=== PATIENT | male | born 1945 | race Caucasian/White ===

== ENCOUNTER 2023-01-12 17:12 | Observation (INO) ==
[2023-01-12 17:56] LABS: White Blood Count 8.6 10^3/uL (3.5-10.8)
[2023-01-12 17:57] LABS: ABS Eosinophils 0.2 10^3/ul (0-0.6); ABS Lymphocytes 2.5 10^3/ul (1.0-4.8); ABS Monocytes 0.9 10^3/ul (0-0.8); Eosinophil % 2.7 %; Hematocrit 35 % (42-52); Hemoglobin 11.9 g/dL (14.0-18.0); Lymphocyte % 28.8 %; Mean Corpuscular HGB Conc 34 g/dL (31-36); Mean Corpuscular Hemoglobin 31 pg (27-31); Mean Corpuscular Volume 92 fL (80-94); Mean Platelet Volume 6.9 fL (7.4-10.4); Platelet Count 288 10^3/uL (150-450); Red Blood Count 3.86 10^6 /uL (4.18-5.48); Red Cell Distribution Width 13 % (10-15)
[2023-01-12 18:27] LABS: Albumin 4.2 g/dL (3.2-5.2); Albumin/Globulin Ratio 1.7 (1-3); Creatinine, Serum 2.39 mg/dL (0.67-1.17); Globulin 2.5 g/dL (2-4); Magnesium 1.6 mg/dL (1.9-2.7); Potassium 4.3 mmol/L (3.5-5.0); Total Bilirubin 0.6 mg/dL (0.2-1.0); Total Protein 6.7 g/dL (6.4-8.9); eGFR CKD-EPI 27.1 (>60)
[2023-01-12 18:39] LABS: TSH Ultra Thyroid Stim Horm 3.84 mcIU/mL (0.34-5.60)
[2023-01-12 20:09] LABS: High Sensitivity Troponin 1 Hr 16 pg/mL (<20)
[2023-01-12 21:10] LABS: Urine Appearance Clear; Urine Bilirubin Negative (Negative); Urine Blood Negative (Negative); Urine Color Yellow; Urine Glucose Negative (Negative); Urine Ketones Negative (Negative); Urine Nitrite Negative (Negative); Urine Protein Negative (Negative); Urine Specific Gravity 1.018 (1.002-1.030); Urine Urobilinogen Negative (Negative)
[2023-01-12] MEDS ORDERED: Lactated Ringers 1000 ml BAG 1,000 ML IV ONE (21:49)
[2023-01-12] MEDS ORDERED: Magnesium Sulfate 2 gm BAG 2 GM/50 ML BAG IVPB ONE (22:58)
[2023-01-12 23:14] LABS: Ferritin 116.8 ng/mL (24-336)
[2023-01-12] MEDS: Enoxaparin 30 MG/0.3 ML SYR SUBCUT SCH (23:56)
[2023-01-13 06:35] LABS: ABS Eosinophils 0.3 10^3/ul (0-0.6); ABS Lymphocytes 2.3 10^3/ul (1.0-4.8); ABS Monocytes 0.7 10^3/ul (0-0.8); ABS Neutrophils 3.7 10^3/ul (1.5-7.7); Eosinophil % 4.2 %; Hematocrit 34 % (42-52); Hemoglobin 11.4 g/dL (14.0-18.0); Lymphocyte % 32.5 %; Mean Corpuscular HGB Conc 34 g/dL (31-36); Mean Corpuscular Hemoglobin 31 pg (27-31); Mean Corpuscular Volume 92 fL (80-94); Mean Platelet Volume 7.1 fL (7.4-10.4); Platelet Count 273 10^3/uL (150-450); Red Blood Count 3.68 10^6 /uL (4.18-5.48); Red Cell Distribution Width 13 % (10-15); White Blood Count 7.1 10^3/uL (3.5-10.8)
[2023-01-13 06:51] LABS: Calcium 9.7 mg/dL (8.6-10.3); Creatinine, Serum 2.21 mg/dL (0.67-1.17); Potassium 4.4 mmol/L (3.5-5.0); eGFR CKD-EPI 29.7 (>60)
[2023-01-13] MEDS: Fluticasone NASAL SPRAY 50MCG 16 gm SPRAY BTL INTRANASAL SCH (07:36)
[2023-01-13] MEDS ORDERED: Dextrose 50% Syringe 50 ml 25 GM/50 ML SYRINGE IV PUSH PRN (07:56)
[2023-01-13] MEDS ORDERED: NS 0.9% 1000 ml BAG 1,000 ML IV SCH (15:00)
[2023-01-13] MEDS: Enoxaparin 30 MG/0.3 ML SYR SUBCUT SCH (21:02)
[2023-01-14 06:42] LABS: Albumin 3.8 g/dL (3.2-5.2); Albumin/Globulin Ratio 1.7 (1-3); Calcium 9.2 mg/dL (8.6-10.3); Creatinine, Serum 1.9 mg/dL (0.67-1.17); Globulin 2.3 g/dL (2-4); Potassium 4.7 mmol/L (3.5-5.0); Total Bilirubin 0.4 mg/dL (0.2-1.0); Total Protein 6.1 g/dL (6.4-8.9); eGFR CKD-EPI 35.7 (>60)
[2023-01-14] MEDS: Fluticasone NASAL SPRAY 50MCG 16 gm SPRAY BTL INTRANASAL SCH (09:33)
[2023-01-14 10:14] VITALS: BP 129/81
== END 2023-01-14 11:20 | disposition home or self-care (01) ==
LOC: EDHOLD 17:12 → ED 17:12 → SUATTDRO 21:55 → EDHOLD 01-13 00:06 → MEDTELE 01-13 00:14
PROVIDERS: ADMIT Student in an Organized Health Care Education/Training Program; ATTEND Internal Medicine

== ENCOUNTER 2023-10-27 22:41 | Inpatient (IN) ==
[2023-10-28 00:37] LABS: ABS Eosinophils 0.1 10^3/uL (0.0-0.5); ABS Monocytes 1.1 10^3/uL (0.0-1.1); ABS Neutrophils 6.3 10^3/uL (1.5-7.6); Eosinophil % 0.8 %; Hemoglobin 11.9 g/dL (13.2-16.3); Lymphocyte % 20.8 %; Mean Corpuscular Hemoglobin 31.8 pg (27-33); Mean Corpuscular Hgb Conc 34.9 g/dL (31-36); Mean Corpuscular Volume 90.9 fL (80-97); Mean Platelet Volume 6.7 fL (7.5-11.2); Platelet Count 295 10^3/uL (150-450); Red Blood Count 3.74 10^6/uL (4.06-5.63); Red Cell Distribution Width 13.6 % (12-17); White Blood Count 9.4 10^3/uL (3.6-10.2)
[2023-10-28 00:41] LABS: Activated Partial Thrombo Time 29.4 seconds (26.0-38.0); INR 1.04 (0.83-1.13)
[2023-10-28 00:41] LABS: Urine Appearance Clear; Urine Bilirubin Negative (Negative); Urine Blood Negative (Negative); Urine Color Yellow; Urine Glucose Negative (Negative); Urine Ketones Negative (Negative); Urine Nitrite Negative (Negative); Urine Protein Negative (Negative); Urine Specific Gravity 1.009 (1.002-1.030); Urine Urobilinogen Negative (Negative)
[2023-10-28 01:09] LABS: Albumin 4.2 g/dL (3.2-5.2); Albumin/Globulin Ratio 1.6 (1-3); C Reactive Protein 2.37 mg/L (<8.01); Calcium 10.1 mg/dL (8.6-10.3); Creatinine, Serum 1.89 mg/dL (0.67-1.17); Globulin 2.7 g/dL (2-4); Potassium 3.7 mmol/L (3.5-5.0); Total Bilirubin 0.8 mg/dL (0.2-1.0); Total Protein 6.9 g/dL (6.4-8.9); eGFR CKD-EPI 35.9 (>60)
[2023-10-28] MEDS ORDERED: Dextrose 50% Syringe 50 ml 25 GM/50 ML SYRINGE IV PUSH ONE (01:19)
[2023-10-28] MEDS ORDERED: NS 0.9% 1000 ml BAG 1,000 ML IV ONE (03:12)
[2023-10-28] MEDS ORDERED: Magnesium Hydroxide LIQ 30 ML UDC PO PRN (03:14)
[2023-10-28 03:40] LABS: High Sensitivity Troponin 1 Hr 25 pg/mL (<20)
[2023-10-28 05:17] LABS: ABS Eosinophils 0.1 10^3/uL (0.0-0.5); ABS Lymphocytes 1.9 10^3/uL (1.0-4.8); ABS Monocytes 0.8 10^3/uL (0.0-1.1); ABS Neutrophils 4.2 10^3/uL (1.5-7.6); ABS Nucleated RBC 0.01 10^3/ul; Eosinophil % 1.5 %; Hematocrit 33.9 % (38-53); Hemoglobin 11.6 g/dL (13.2-16.3); Lymphocyte % 27.4 %; Mean Corpuscular Hemoglobin 31.4 pg (27-33); Mean Corpuscular Hgb Conc 34.2 g/dL (31-36); Mean Corpuscular Volume 91.8 fL (80-97); Mean Platelet Volume 6.7 fL (7.5-11.2); Nucleated Red Blood Cells % 0.2 %/100WBC (0.0-0.8); Platelet Count 273 10^3/uL (150-450); Red Blood Count 3.69 10^6/uL (4.06-5.63); Red Cell Distribution Width 13.6 % (12-17); White Blood Count 7.1 10^3/uL (3.6-10.2)
[2023-10-28 05:38] LABS: Calcium 9.3 mg/dL (8.6-10.3); Creatinine, Serum 1.8 mg/dL (0.67-1.17); Magnesium 1.9 mg/dL (1.9-2.7); Potassium 3.6 mmol/L (3.5-5.0); eGFR CKD-EPI 38.1 (>60)
[2023-10-28] MEDS: Enoxaparin 40 MG/0.4 ML SYR SUBCUT SCH (06:16)
[2023-10-28] MEDS ORDERED: VENLAFAXINE 37.5 MG PO SCH (09:00)
[2023-10-28] MEDS ORDERED: Glimepiride 2 mg TAB (NF) PO SCH (09:00)
[2023-10-28] MEDS: Fluticasone NASAL SPRAY 50MCG 16 gm SPRAY BTL INTRANASAL SCH ×2 (10:31→10:36)
[2023-10-28] MEDS: Venlafaxine XR 75 mg PO SCH (10:33)
[2023-10-28] MEDS ORDERED: NS 0.9% 500 ml BAG 500 ML IV ONE (13:28)
[2023-10-29] MEDS: Enoxaparin 40 MG/0.4 ML SYR SUBCUT SCH (06:00)
[2023-10-29 06:35] LABS: ABS Eosinophils 0.1 10^3/uL (0.0-0.5); ABS Lymphocytes 1.9 10^3/uL (1.0-4.8); ABS Neutrophils 5.6 10^3/uL (1.5-7.6); Hematocrit 33.4 % (38-53); Hemoglobin 11.4 g/dL (13.2-16.3); Mean Corpuscular Hemoglobin 31.2 pg (27-33); Mean Corpuscular Volume 91.9 fL (80-97); Platelet Count 265 10^3/uL (150-450); Red Blood Count 3.63 10^6/uL (4.06-5.63); Red Cell Distribution Width 13.7 % (12-17); White Blood Count 8.6 10^3/uL (3.6-10.2)
[2023-10-29 06:45] LABS: Calcium 9.3 mg/dL (8.6-10.3); Creatinine, Serum 1.97 mg/dL (0.67-1.17); Magnesium 2.1 mg/dL (1.9-2.7); Potassium 4.1 mmol/L (3.5-5.0); eGFR CKD-EPI 34.1 (>60)
[2023-10-29] MEDS: Venlafaxine XR 75 mg PO SCH (08:33)
[2023-10-29] MEDS: Fluticasone NASAL SPRAY 50MCG 16 gm SPRAY BTL INTRANASAL SCH (08:41)
[2023-10-29] MEDS ORDERED: Influenza vaccine *QUAD* *2023-24* 0.5 ML SYRINGE IM ONE (09:00)
[2023-10-29] MEDS ORDERED: NS 0.9% 1000 ml BAG 1,000 ML IV SCH (11:00)
[2023-10-30] MEDS: Enoxaparin 40 MG/0.4 ML SYR SUBCUT SCH (05:53)
[2023-10-30 06:47] LABS: Calcium 9.2 mg/dL (8.6-10.3); Creatinine, Serum 1.74 mg/dL (0.67-1.17); Potassium 3.8 mmol/L (3.5-5.0); eGFR CKD-EPI 39.6 (>60)
[2023-10-30] MEDS ORDERED: COVID VAC 23-24(12+)(Moderna) SYR 0.5 ML IM ONE (09:00)
[2023-10-30] MEDS: Venlafaxine XR 75 mg PO SCH (09:22)
[2023-10-30] MEDS: Fluticasone NASAL SPRAY 50MCG 16 gm SPRAY BTL INTRANASAL SCH (09:24)
[2023-10-30] MEDS ORDERED: NS 0.9% 1000 ml BAG 1,000 ML IV SCH (13:15)
[2023-10-31] MEDS ORDERED: Lidocaine 4% GEL 10 GM TUBE TOPICAL ONE (03:27)
[2023-10-31] MEDS: Enoxaparin 40 MG/0.4 ML SYR SUBCUT SCH (06:18)
[2023-10-31] MEDS: Venlafaxine XR 75 mg PO SCH (09:07)
[2023-10-31] MEDS: Fluticasone NASAL SPRAY 50MCG 16 gm SPRAY BTL INTRANASAL SCH (09:07)
[2023-10-31] MEDS ORDERED: Dextrose 50% Syringe 50 ml 25 GM/50 ML SYRINGE IV PUSH PRN (15:34)
[2023-10-31] MEDS ORDERED: NS 0.9% 1000 ml BAG 1,000 ML IV SCH (16:45)
[2023-10-31] MEDS: Lidocaine 4% GEL 10 GM TUBE TOPICAL PRN (23:24)
[2023-11-01] MEDS: Enoxaparin 40 MG/0.4 ML SYR SUBCUT SCH (06:19)
[2023-11-01 07:23] LABS: ABS Eosinophils 0.1 10^3/uL (0.0-0.5); ABS Lymphocytes 1.8 10^3/uL (1.0-4.8); ABS Monocytes 0.9 10^3/uL (0.0-1.1); ABS Neutrophils 3.2 10^3/uL (1.5-7.6); ABS Nucleated RBC 0.01 10^3/ul; Eosinophil % 1.5 %; Hematocrit 35.9 % (38-53); Hemoglobin 12.2 g/dL (13.2-16.3); Lymphocyte % 29.7 %; Mean Corpuscular Hemoglobin 31.3 pg (27-33); Mean Corpuscular Hgb Conc 33.9 g/dL (31-36); Mean Corpuscular Volume 92.3 fL (80-97); Mean Platelet Volume 6.8 fL (7.5-11.2); Nucleated Red Blood Cells % 0.1 %/100WBC (0.0-0.8); Platelet Count 269 10^3/uL (150-450); Red Blood Count 3.89 10^6/uL (4.06-5.63); Red Cell Distribution Width 13.4 % (12-17); White Blood Count 6.2 10^3/uL (3.6-10.2)
[2023-11-01 07:38] LABS: Calcium 9.4 mg/dL (8.6-10.3); Creatinine, Serum 1.53 mg/dL (0.67-1.17); Potassium 4.3 mmol/L (3.5-5.0); eGFR CKD-EPI 46.2 (>60)
[2023-11-01] MEDS: Venlafaxine XR 75 mg PO SCH (08:30)
[2023-11-01] MEDS: Fluticasone NASAL SPRAY 50MCG 16 gm SPRAY BTL INTRANASAL SCH (08:30)
[2023-11-01] MEDS: Lidocaine 4% GEL 10 GM TUBE TOPICAL PRN (08:32)
[2023-11-01] MEDS ORDERED: Senna TAB 8.6 mg TAB PO PRN (09:27)
[2023-11-01] MEDS ORDERED: Magnesium Hydroxide LIQ 30 ML UDC PO PRN (09:27)
[2023-11-01] MEDS: Polyethylene Glycol 3350 17 GM PACKET PO SCH (12:53)
[2023-11-02] MEDS: Enoxaparin 40 MG/0.4 ML SYR SUBCUT SCH (06:01)
[2023-11-02] MEDS ORDERED: Cosyntropin 0.001 MG in Sodium Chloride 0.9% 0.5 ML IV ONE (08:58)
[2023-11-02] MEDS: Polyethylene Glycol 3350 17 GM PACKET PO SCH (10:16)
[2023-11-02] MEDS: Venlafaxine XR 75 mg PO SCH (10:19)
[2023-11-02] MEDS: Fluticasone NASAL SPRAY 50MCG 16 gm SPRAY BTL INTRANASAL SCH (10:20)
[2023-11-02] MEDS: Lidocaine PATCH 5% PATCH TRANSDERM SCH (17:26)
[2023-11-03] MEDS: Enoxaparin 40 MG/0.4 ML SYR SUBCUT SCH (06:22)
[2023-11-03] MEDS: Venlafaxine XR 75 mg PO SCH (08:39)
[2023-11-03] MEDS: Lidocaine PATCH 5% PATCH TRANSDERM SCH (08:42)
[2023-11-03] MEDS: Polyethylene Glycol 3350 17 GM PACKET PO SCH (08:50)
[2023-11-03] MEDS ORDERED: Lidocaine 4% GEL 10 GM TUBE TOPICAL PRN (09:01)
[2023-11-03] MEDS ORDERED: Magnesium Hydroxide LIQ 30 ML UDC PO PRN (09:07)
[2023-11-03] MEDS: Fluticasone NASAL SPRAY 50MCG 16 gm SPRAY BTL INTRANASAL SCH (09:50)
[2023-11-03 10:53] LABS: Rapid COVID-19 Molecular Undetected (Undetected)
[2023-11-03 11:08] VITALS: BP 97/66
== END 2023-11-03 12:25 | DRG 726 ==
LOC: EDHOLD 22:41 → ED 22:41 → SUATTDRO 10-28 03:14 → MEDTELE 10-28 16:26 → SUATTDRO 10-30 11:00 → SSU 11-02 07:19
PROVIDERS: ADMIT Internal Medicine; ATTEND Internal Medicine